=== PATIENT | male | born 1950 | race Two or more races ===

== ENCOUNTER 2018-08-07 12:40 | Emergency (ER) | payer MEDICARE, OTHER ==
[~2018-08-07] VITALS: Ht 165.1 cm; Wt 77.1 kg
[2018-08-07 12:40] VITALS: BP 164/74
[2018-08-07] MEDS ORDERED: ORPH100T PO (13:20)
[2018-08-07] MEDS ORDERED: HYDR-3164 PO (13:20)
[2018-08-07] MEDS ORDERED: IBUP-1007 PO (13:20)
--- NOTE | 2018-08-07 13:20 | PHYS DOC ---
Past Medical History Past Medical History: No Pertinent History (SARA,MICAELA Aguirre FOOT SPECIALIST) Past Surgical History: No Surgical History [facility] Alcohol Use: Occasionally Drug Use: None ([facility]) Adult General Chief Complaint Chief Complaint: Neck Pain [facility] HPI Patient is a 67 year old male who presents with woke 3 days ago and he had pain in his right and left side of his neck and goes into both shoulders. Patient states he took the oxycodone last night and has been trying to use heat with the pain still there. Patient rates his pain a 7 out of 10. He states his feels tight and spasming pain. ([facility],MICAELA Aguirre FOOT SPECIALIST) Review of Systems Review of Systems Constitutional: Denies fever or chills [] Eyes: Denies change in visual acuity, redness, or eye pain [] HENT: Denies nasal congestion or sore throat [] Respiratory: Denies cough or shortness of breath [] Cardiovascular: No additional information not addressed in HPI [] GI: Denies abdominal pain, nausea, vomiting, bloody stools or diarrhea [] : Denies dysuria or hematuria [] Musculoskeletal: upper back pain and neck tightness or joint pain [] Integument: Denies rash or skin lesions [] Neurologic: Denies headache, focal weakness or sensory changes [] All other systems were reviewed and found to be within normal limits, except as documented in this note. (MICAELA RUIZ FOOT SPECIALIST) Allergies Allergies Allergies Coded Allergies Type Severity Reaction Last Updated Verified No Known Drug Allergies 08/07/18 No (ISHMAEL GU MD) Physical Exam Physical Exam Constitutional: Well developed, well nourished, no acute distress, non-toxic appearance. [] HENT: Normocephalic, atraumatic, bilateral external ears normal, oropharynx moist, no oral exudates, nose normal. [] Eyes: PERRLA, EOMI, conjunctiva normal, no discharge. [] Neck: Normal range of motion, no tenderness, supple, no stridor. [] Cardiovascular:Heart rate regular rhythm, no murmur [] Lungs & Thorax: Bilateral breath sounds clear to auscultation [] Abdomen: Bowel sounds normal, soft, no tenderness, no masses, no pulsatile masses. [] Skin: Warm, dry, no erythema, no rash. [] Back: No tenderness, no CVA tenderness. [] Extremities: bilateral sides of neck and upper back tenderness with palpation pressure, no cyanosis, no clubbing, ROM intact, no edema. [] Neurologic: Alert and oriented X 3, normal motor function, normal sensory function, no focal deficits noted. [] Psychologic: Affect normal, judgement normal, mood normal. [] (MICAELA RUIZ APRN) Current Patient Data Vital Signs Vital Signs Date Time Temp Pulse Resp B/P (MAP) Pulse Ox O2 Delivery O2 Flow Rate FiO2 08/07/18 12:40 98.6 68 14 164/74 (104) 98 Room Air 98.6 (ISHMAEL GU MD) EKG EKG [] (MICAELA RUIZ APRN) Radiology/Procedures Radiology/Procedures [] (MICAELA RUIZ APRN) Course & Med Decision Making Course & Med Decision Making Patient is a 67 year old male who presents with woke 3 days ago and he had pain in his right and left side of his neck and goes into both shoulders. Patient states he took the oxycodone last night and has been trying to use heat with the pain still there. Patient rates his pain a 7 out of 10. He states his feels tight and spasming pain. Alert and oriented. Ambulatory with steady gait. Drove himself to the hospital. Skin pink warm and dry. Mucous membranes moist. PERRLA. Denies numbness or tingling, chest pain, shortness of air, headache, visual changes, fever, nausea, vomiting. Lungs are clear to auscultation all lobes. Vital signs are within normal limits. Neurologically intact Patient likely has muscle strain to his upper back and neck. He does not have intact range of motion to his neck but can turn his head equal the same distance in the right and left direction. There is no swelling or lymph nodes or bumps or felt in the neck or upper back. There is slight tenderness with palpation to bilateral shoulders and bilateral sides of the neck. Patient will be given a muscle relaxer and pain medication and he needs to follow-up with his primary care doctor this coming week. (MICAELA RUIZ APRN) Course & Med Decision Making Staff Physician Addendum: I was working in the ER during the course of this patient's visit. I was available for consultation as needed, but I was not directly involved in the care of this patient. (ISHMAEL GU MD) Dragon Disclaimer Dragon Disclaimer This electronic medical record was generated, in whole or in part, using a voice recognition dictation system. (MICAELA RUIZ APRN) Departure Departure Impression: Primary Impression: Neck muscle strain Additional Impression: Muscle strain of upper back Disposition: HOME, SELF-CARE Condition: STABLE Patient Instructions: Muscle Strain Additional Instructions: Take medications as prescribed. Try using heating pad. Follow-up with your primary care doctor if not getting better. Scripts Ibuprofen (IBUPROFEN) 600 Mg Tablet 600 MG PO PRN Q6HRS PRN for INFLAMMATION, #15 TAB Prov: MICAELA RUIZ APRN 08/07/18 Hydrocodone/Apap 5-325 (NORCO 5-325 TABLET) 1 Each Tablet 1 TAB PO PRN Q6HRS PRN for PAIN, #8 TAB 0 Refills Prov: MICAELA RUIZ APRN 08/07/18 Orphenadrine Citrate (ORPHENADRINE CITRATE) 100 Mg Tablet.er 1 TAB PO BID, #20 TAB Prov: MICAELA RUIZ APRN 08/07/18 Problem Qualifiers Primary Impression: Neck muscle strain Encounter type: initial encounter Qualified Codes: S16.1XXA - Strain of muscle, fascia and tendon at neck level, initial encounter MICAELA RUIZ APRN Aug 07, 2018 13:20 ISHMAEL GU MD Aug 08, 2018 21:26
== END 2018-08-07 13:45 | disposition home or self-care (01) ==
LOC: ER 12:40
DX: S16.1XXA Strain of muscle, fascia and tendon at neck level, initial encounter (principal); S29.012A Strain of muscle and tendon of back wall of thorax, initial encounter; X50.9XXA Other and unspecified overexertion or strenuous movements or postures, initial encounter; Y93.89 Activity, other specified; Y92.89 Other specified places as the place of occurrence of the external cause; Y99.8 Other external cause status
CPT/HCPCS: 99283

== ENCOUNTER 2019-06-17 14:02 | Emergency (ER) | payer MEDICARE, OTHER ==
[~2019-06-17 14:02] MED LIST: HYDR-3164 PO; IBUP-1007 PO; ORPH100T PO
== END 2019-06-17 16:14 | disposition left against medical advice (07) ==
LOC: ER 14:29
DX: R10.9 Unspecified abdominal pain (principal); Z53.21 Procedure and treatment not carried out due to patient leaving prior to being seen by health care provider

== ENCOUNTER 2019-07-03 12:08 | Emergency (ER) | payer MEDICARE ==
[2019-07-03 12:32] VITALS: BP 171/80
[2019-07-03] MEDS ORDERED: KETOROLAC 30 MG/ML VIAL. IM STA (12:58)
[2019-07-03] MEDS ORDERED: KETOROLAC 30 MG/ML VIAL. ONE (13:01)
[2019-07-03] MEDS ORDERED: IBUP-1027 PO (13:03)
[2019-07-03] MEDS ORDERED: ORPH100T PO (13:03)
--- NOTE | 2019-07-03 13:04 | PHYS DOC ---
Past Medical History Past Medical History: No Pertinent History (JACOBO JULIAN APRN) Past Surgical History: No Surgical History (JACOBO JULIAN APRN) Alcohol Use: Occasionally Drug Use: None (JACOBO JULIAN APRN) Adult General Chief Complaint Chief Complaint: Neck Pain [facility] Patient is a 68 year old male who presents with bilateral neck pain after he was using a snow shovel the last 3-4 days. Denies any other symptoms. Has not been taking medication at home. Complete ROS were reviewed and found to be within normal limits, except as doc umented in the HPI (JACOBO JULIAN APRN) Current Medications Current Medications Current Medications Medications (Trade) Dose Ordered Sig/John Start Time Stop Time Status Last Admin Dose Admin Ketorolac Tromethamine (Toradol 30mg Vial) 30 mg STK-MED ONCE 07/03/19 13:01 07/03/19 13:01 DC (ISHMAEL GU MD) Allergies Allergies Allergies Coded Allergies Type Severity Reaction Last Updated Verified No Known Drug Allergies 08/07/18 No (ISHMAEL GU MD) Physical Exam Physical Exam Constitutional: Well developed, well nourished, no acute distress, non-toxic appearance. [] HENT: Normocephalic, atraumatic, bilateral external ears normal, oropharynx moist, no oral exudates, nose normal. [] Eyes: PERRLA, EOMI, conjunctiva normal, no discharge. [] Neck: Normal range of motion, no spinal tenderness, supple, no stridor. Patient has tenderness to trapezoids muscle. Neurologic: Alert and oriented X 3, normal motor function, normal sensory function, no focal deficits noted. [] Psychologic: Affect normal, judgement normal, mood normal. [] (JACOBO JULIAN APRN) Current Patient Data Vital Signs Vital Signs Date Time Temp Pulse Resp B/P (MAP) Pulse Ox O2 Delivery O2 Flow Rate FiO2 07/03/19 12:32 98.1 73 14 171/80 (110) 95 Room Air 98.1 (ISHMAEL GU MD) EKG EKG [] (JACOBO JULIAN APRN) Radiology/Procedures Radiology/Procedures [] (JACOBO JULIAN APRN) Course & Med Decision Making Course & Med Decision Making Pertinent Labs and Imaging studies reviewed. (See chart for details) Appears to have musculoskeletal strain. Will give Toradol and then send home on Ibuprofen and Norflex. (JACOBO JULIAN APRN) Course & Med Decision Making Staff Physician Addendum: I was working in the ER during the course of this patient's visit. I was available for consultation as needed, but I was not directly involved in the care of this patient. (ISHMAEL GU MD) Dragon Disclaimer Dragon Disclaimer This electronic medical record was generated, in whole or in part, using a voice recognition dictation system. (JACOBO JULIAN APRN) Departure Departure Impression: Primary Impression: Muscle strain of upper back Disposition: HOME, SELF-CARE Condition: STABLE Referrals: NO PCP (PCP) Patient Instructions: Musculoskeletal Pain Additional Instructions: Thank you for visiting [facility]. We appreciate you trusting us with your care. If any additional problems come up don't hesitate to return to visit us. Please follow up with your primary care provider so they can plan additional care if needed and know about the problem that you had. If symptoms worsen come back to the Emergency Department. Any concerning symptoms that start such as chest pain, shortness of air, weakness or numbness on one side of the body, running high fevers or any other concerning symptoms return to the ER. Please fill your medications at any pharmacy and follow the prescription instructions. Scripts Orphenadrine Citrate (ORPHENADRINE CITRATE) 100 Mg Tablet.er 100 MG PO BID PRN for MUSCLE PAIN for 5 Days, #10 TAB.SR Please be aware this medication will make you drowsy. Prov: JACOBO JULIAN APRN 07/03/19 Ibuprofen (IBUPROFEN) 400 Mg Tablet 400 MG PO PRN Q6HRS PRN for INFLAMMATION for 5 Days, #20 TAB Prov: JACOBO JULIAN APRN 07/03/19 JACOBO JULIAN APRN Jul 03, 2019 13:03 ISHMAEL GU MD Jul 03, 2019 14:30
== END 2019-07-03 13:08 | disposition home or self-care (01) ==
LOC: ER 12:08
DX: S29.012A Strain of muscle and tendon of back wall of thorax, initial encounter (principal); X58.XXXA Exposure to other specified factors, initial encounter; Y93.89 Activity, other specified; Y92.89 Other specified places as the place of occurrence of the external cause; Y99.8 Other external cause status
CPT/HCPCS: 96372; 99283; J1885

== ENCOUNTER 2019-07-23 13:24 | Emergency (ER) | payer MEDICARE ==
[~2019-07-23] VITALS: Ht 165.1 cm; Wt 66.5 kg
[~2019-07-23 13:24] MED LIST changes: +IBUP-1027 PO
[2019-07-23] MEDS ORDERED: LIDO:MAALOX 1:1 20 ML SINGLE DOSE. SWSW STA (13:50)
--- NOTE | 2019-07-23 13:53 | PHYS DOC ---
Past Medical History Past Medical History: No Pertinent History Past Surgical History: No Surgical History Smoking Status: Never Smoker Alcohol Use: Occasionally Drug Use: None Adult General Chief Complaint Chief Complaint: ABDOMINAL PAIN HPI HPI Patient is a 68 year old male who presents with abdominal pain has been ongoing for a month intermittently. Location of the pain is in epigastric region of the abdomen. The patient rates his pain 6 out of 10 in severity and sharp. The patient denies any medical history. The patient denies any associated symptoms such as nausea, vomiting, diarrhea. The patient denies any back pain, arm pain, chest pain. Denies anything making the pain better or worse. Complete ROS were reviewed and found to be within normal limits, except as documented in the HPI Current Medications Current Medications Current Medications Medications (Trade) Dose Ordered Sig/John Start Time Stop Time Status Last Admin Dose Admin Fentanyl Citrate (Fentanyl 2ml Vial) 50 mcg 1X ONCE 07/23/19 15:30 07/23/19 15:31 07/23/19 15:27 50 MCG Info (CONTRAST GIVEN -- Rx MONITORING) 1 each PRN DAILY PRN 07/23/19 14:45 07/25/19 14:44 Iohexol (Omnipaque 300 Mg/ml) 75 ml 1X ONCE 07/23/19 14:45 07/23/19 14:46 DC 07/23/19 15:06 75 ML Multi-Ingredient Mouthwash/Gargle (Gi Cocktail) 20 ml 1X STAT 07/23/19 13:50 07/23/19 13:56 DC 07/23/19 14:23 20 ML Sodium Chloride 1,000 ml @ 1,000 mls/hr 1X ONCE 07/23/19 15:30 07/23/19 16:29 07/23/19 15:26 1,000 MLS/HR Allergies Allergies Allergies Coded Allergies Type Severity Reaction Last Updated Verified No Known Drug Allergies 08/07/18 No Physical Exam Physical Exam Constitutional: Well developed, well nourished, no acute distress, non-toxic appearance. [] HENT: Normocephalic, atraumatic, bilateral external ears normal, oropharynx moist, no oral exudates, nose normal. [] Eyes: PERRLA, EOMI, conjunctiva normal, no discharge. [] Neck: Normal range of motion, no tenderness, supple, no stridor. [] Cardiovascular:Heart rate regular rhythm, no murmur [] Lungs & Thorax: Bilateral breath sounds clear to auscultation [] Abdomen: Bowel sounds normal, soft, epigastric tenderness, no masses, no pulsatile masses. [] Skin: Warm, dry, no erythema, no rash. [] Neurologic: Alert and oriented X 3, normal motor function, normal sensory function, no focal deficits noted. [] Psychologic: Affect normal, judgement normal, mood normal. [] Current Patient Data Vital Signs Vital Signs Date Time Temp Pulse Resp B/P (MAP) Pulse Ox O2 Delivery O2 Flow Rate FiO2 07/23/19 15:29 70 17 184/88 (120) 99 Room Air 07/23/19 14:13 97.6 97.6 Lab Values Laboratory Tests Test 07/23/19 13:34 07/23/19 13:40 Urine Collection Type Unknown Urine Color Jennifer Urine Clarity Clear Urine pH 5.5 Urine Specific [place] >=1.030 Urine Protein 30 mg/dL (NEG-TRACE) Urine Glucose (UA) >=1000 mg/dL (NEG) Urine Ketones (Stick) Trace mg/dL (NEG) Urine Blood Negative (NEG) Urine Nitrite Negative (NEG) Urine Bilirubin Small (NEG) Urine Urobilinogen Dipstick 0.2 mg/dL (0.2 mg/dL) Urine Leukocyte Esterase Negative (NEG) Urine RBC 0 /HPF (0-2) Urine WBC 0 /HPF (0-4) Urine Bacteria 0 /HPF (0-FEW) Urine Mucus Mod /LPF White Blood Count 7.6 x10^3/uL (4.0-11.0) Red Blood Count 5.14 x10^6/uL (4.30-5.70) Hemoglobin 15.6 g/dL (13.0-17.5) Hematocrit 45.4 % (39.0-53.0) Mean Corpuscular Volume 88 fL (79-100) Mean Corpuscular Hemoglobin 30 pg (25-35) Mean Corpuscular Hemoglobin Concent 34 g/dL (31-37) Red Cell Distribution Width 14.1 % (11.5-14.5) Platelet Count 216 x10^3/uL (140-400) Neutrophils (%) (Auto) 58 % (31-73) Lymphocytes (%) (Auto) 29 % (24-48) Monocytes (%) (Auto) 8 % (0-9) Eosinophils (%) (Auto) 4 % (0-3) H Basophils (%) (Auto) 1 % (0-3) Neutrophils # (Auto) 4.4 x10^3/uL (1.8-7.7) Lymphocytes # (Auto) 2.2 x10^3/uL (1.0-4.8) Monocytes # (Auto) 0.6 x10^3/uL (0.0-1.1) Eosinophils # (Auto) 0.3 x10^3/uL (0.0-0.7) Basophils # (Auto) 0.1 x10^3/uL (0.0-0.2) Sodium Level 138 mmol/L (136-145) Potassium Level 4.1 mmol/L (3.5-5.1) Chloride Level 101 mmol/L (98-107) Carbon Dioxide Level 31 mmol/L (21-32) Anion Gap 6 (6-14) Blood Urea Nitrogen 12 mg/dL (8-26) Creatinine 0.8 mg/dL (0.7-1.3) Estimated GFR (Cockcroft-Gault) 96.7 BUN/Creatinine Ratio 15 (6-20) Glucose Level 208 mg/dL (70-99) H Calcium Level 8.9 mg/dL (8.5-10.1) Total Bilirubin 0.6 mg/dL (0.2-1.0) Aspartate Amino Transferase (AST) 16 U/L (15-37) Alanine Aminotransferase (ALT) 19 U/L (16-63) Alkaline Phosphatase 118 U/L (46-116) H Troponin I Quantitative < 0.017 ng/mL (0.000-0.055) Total Protein 7.5 g/dL (6.4-8.2) Albumin 3.7 g/dL (3.4-5.0) Albumin/Globulin Ratio 1.0 (1.0-1.7) Lipase 134 U/L (73-393) Laboratory Tests 07/23/19 13:40 Laboratory Tests 07/23/19 13:40 EKG EKG [] Radiology/Procedures Radiology/Procedures [facility] [address] [place] [address] IMAGING REPORT Signed PATIENT: KELLY GIORDANO ACCOUNT: [id number] : 1950 LOCATION: ER AGE: 68 SEX: M EXAM STATUS: REG ER ORD. PHYSICIAN: JACOBO JULIAN APRN REASON: epigastric pain PROCEDURE: CT ABD PELV W/ IV CONTRST ONLY Study: CT abdomen/pelvis with intravenous contrast Indication: Epigastric pain. Comparison: None. Technique: Helical CT imaging performed of the abdomen and pelvis after the intravenous administration of 75 cc Omnipaque 300 contrast. Sagittal and coronal reformats were obtained. One or more of the following individualized dose reduction techniques were utilized for this examination: 1. Automated exposure control 2. Adjustment of the mA and/or kV according to patient size 3. Use of iterative reconstruction technique. Findings: Chest: Unremarkable. Liver: Unremarkable. Gallbladder/Biliary Tree: Unremarkable. Pancreas: Foci of pancreatic mineralization seen at the head/body junction, image 28 series 2 and at the mid body on image 22 series 2. No peripancreatic inflammatory changes or discrete mass. Spleen: Normal size. Adrenal Glands: Normal morphology. Kidneys/Ureters/Bladder: No suspicious cyst or mass involving either kidney. No hydroureteronephrosis. Partially collapsed urinary bladder with mild circumferential wall thickening. The urachus is somewhat prominent proximally and may be partially patent, image 30 series 5. The urachus becomes threadlike approaching the umbilicus. Reproductive Organs: The prostate is prominent in size at approximately 5.5 cm transverse. Colon: Unremarkable. Appendix: Unremarkable. Small Bowel: Nonobstructed. Stomach: Mucosal thickening in the region of the gastric fundus posterior wall and to a lesser degree along the greater curvature of the gastric body proximally, image 14 series 2. The stomach is not fully distended. Vasculature: Scattered calcified and noncalcified atheromatous plaque. No aneurysmal dilatation. There appears be mild luminal narrowing mainly on account of soft plaque involving the left common iliac artery, image 51 series 2. Lymph Nodes: Unremarkable. Peritoneum and Body Wall: No free air or free fluid. Bones: Scattered degenerative changes no acute or aggressive osseous abnormality. Miscellaneous: None. Impression: 1. Mild thickening of the posterior wall of the gastric fundus and proximal gastric body along the greater curvature which is a nonspecific finding given gastric underdistention. In the appropriate clinical setting however gastritis could account for this appearance. No surrounding inflammatory changes, discrete ulceration or regional lymphadenopathy. 2. Small foci of mineralization within the pancreas which could represent a manifestation of prior inflammation. No features of acute appendicitis. 3. Enlargement of the prostate. Mild bladder wall thickening circumferentially. Recommend correlation for symptoms of chronic bladder outlet obstruction. 4. Multifocal atheromatous plaque with greatest involvement of the left common iliac artery where there appears to be mild luminal stenosis mainly due to soft plaque. Electronically signed by: YURI HOOD MD (07/23/2019 3:26 PM) [id number] DICTATED and SIGNED BY: YURI HOOD MD DATE: 07/23/19 1526 [][facility] [address] [place] [address] IMAGING REPORT Signed PATIENT: KELLY GIORDANO ACCOUNT: [id number] : 1950 LOCATION: ER AGE: 68 SEX: M EXAM STATUS: PRE ER ORD. PHYSICIAN: JACOBO JULIAN APRN REASON: epigastric pain PROCEDURE: CHEST PA & LATERAL EXAM: CHEST PA LATERAL INDICATION: Epigastric pain. TECHNIQUE: PA and lateral views COMPARISON: None FINDINGS: The heart size is normal. The great vessels appear unremarkable. There is no hilar or mediastinal mass. The lungs are clear. There is no pleural effusion or pneumothorax. There are no significant osseous abnormalities. IMPRESSION: No active cardiopulmonary disease. Electronically signed by: Odalys Tirado MD (07/23/2019 2:05 PM) [facility] DICTATED and SIGNED BY: ODALYS TIRADO MD DATE: 07/23/19 1405 Course & Med Decision Making Course & Med Decision Making Pertinent Labs and Imaging studies reviewed. (See chart for details) Will get labs, CT, UA, and give supportive care. Labs are unremarkable. GI cockail helped pain some. CT shows: Impression: 1. Mild thickening of the posterior wall of the gastric fundus and proximal gastric body along the greater curvature which is a nonspecific finding given gastric underdistention. In the appropriate clinical setting however gastritis could account for this appearance. No surrounding inflammatory changes, discrete ulceration or regional lymphadenopathy. 2. Small foci of mineralization within the pancreas which could represent a manifestation of prior inflammation. No features of acute appendicitis. 3. Enlargement of the prostate. Mild bladder wall thickening circumferentially. Recommend correlation for symptoms of chronic bladder outlet obstruction. 4. Multifocal atheromatous plaque with greatest involvement of the left common iliac artery where there appears to be mild luminal stenosis mainly due to soft plaque. Electronically signed by: YURI HOOD MD (07/23/2019 3:26 PM) [id number] Patient appears to have gastritis. Will place on Protonix and have follow up with pcp/GI. Archieon Disclaimer Dragon Disclaimer This electronic medical record was generated, in whole or in part, using a voice recognition dictation system. Departure Departure Impression: Primary Impression: Gastritis Disposition: HOME, SELF-CARE Condition: STABLE Referrals: NO PCP (PCP) ARIEL AMBRIZ MD Patient Instructions: Gastritis, Adult Additional Instructions: Thank you for visiting [facility]. We appreciate you trusting us with your care. If any additional problems come up don't hesitate to return to visit us. Please follow up with your primary care provider so they can plan additional care if needed and know about the problem that you had. If symptoms worsen come back to the Emergency Department. Any concerning symptoms that start such as chest pain, shortness of air, weakness or numbness on one side of the body, running high fevers or any other concerning symptoms return to the ER. Scripts Pantoprazole Sodium (PROTONIX) 20 Mg Tablet. 40 MG PO DAILY for 30 Days, #60 TAB Prov: JACOBO UJLIAN APRN 07/23/19 Problem Qualifiers Primary Impression: Gastritis Gastritis type: unspecified gastritis Chronicity: acute Gastritis bleeding: without bleeding Qualified Codes: K29.00 - Acute gastritis without bleeding JACOBO JULIAN APRN Jul 23, 2019 13:53
[2019-07-23 14:00] LABS: BILIRUBIN,URINE SMALL (NEG); CLARITY,URINE CLEAR; COLOR,URINE AMBER; NITRITE,URINE NEGATIVE (NEG); PH,URINE 5.5; PROTEIN,URINE 30 mg/dL (NEG-TRACE); UROBILINOGEN,URINE 0.2 mg/dL (0.2 mg/dL)
--- NOTE | 2019-07-23 14:08 | RAD ---
EXAM: CHEST PA LATERAL INDICATION: Epigastric pain. TECHNIQUE: PA and lateral views COMPARISON: None FINDINGS: The heart size is normal. The great vessels appear unremarkable. There is no hilar or mediastinal mass. The lungs are clear. There is no pleural effusion or pneumothorax. There are no significant osseous abnormalities. IMPRESSION: No active cardiopulmonary disease. Electronically signed by: Kelly Tirado MD (07/23/2019 2:05 PM) [facility]
[2019-07-23 14:09] LABS: BACTERIA,URINE 0 /HPF (0-FEW); RBC,URINE 0 /HPF (0-2); WBC,URINE 0 /HPF (0-4)
[2019-07-23 14:26] LABS: BASO # 0.1 x10^3/uL (0.0-0.2); BASO % 1 % (0-3); EOS # 0.3 x10^3/uL (0.0-0.7); EOS % 4 % (0-3); HEMATOCRIT 45.4 % (39.0-53.0); HEMOGLOBIN 15.6 g/dL (13.0-17.5); LYMPH # 2.2 x10^3/uL (1.0-4.8); LYMPH % 29 % (24-48); MEAN CORPUSCULAR HEMOGLOBIN 30 pg (25-35); MEAN CORPUSCULAR HGB CONC 34 g/dL (31-37); MEAN CORPUSCULAR VOLUME 88 fL (79-100); MONO # 0.6 x10^3/uL (0.0-1.1); MONO % 8 % (0-9); NEUT # 4.4 x10^3/uL (1.8-7.7); NEUT % 58 % (31-73); PLATELET COUNT 216 x10^3/uL (140-400); RED BLOOD COUNT 5.14 x10^6/uL (4.30-5.70); RED CELL DISTRIBUTION WIDTH 14.1 % (11.5-14.5); WHITE BLOOD COUNT 7.6 x10^3/uL (4.0-11.0)
[2019-07-23 14:43] LABS: ALBUMIN 3.7 g/dL (3.4-5.0); CALCIUM 8.9 mg/dL (8.5-10.1); CREATININE 0.8 mg/dL (0.7-1.3); GFR 96.7; POTASSIUM 4.1 mmol/L (3.5-5.1); TOTAL BILIRUBIN 0.6 mg/dL (0.2-1.0); TOTAL PROTEIN 7.5 g/dL (6.4-8.2)
[2019-07-23] MEDS ORDERED: IOHEXOL 300 MG/ML 100ML VIAL. IV ONE (14:45)
[2019-07-23] MEDS ORDERED: CONTRAST GIVEN. MC PRN (14:45)
--- NOTE | 2019-07-23 15:29 | RAD ---
Study: CT abdomen/pelvis with intravenous contrast Indication: Epigastric pain. Comparison: None. Technique: Helical CT imaging performed of the abdomen and pelvis after the intravenous administration of 75 cc Omnipaque 300 contrast. Sagittal and coronal reformats were obtained. One or more of the following individualized dose reduction techniques were utilized for this examination: 1. Automated exposure control 2. Adjustment of the mA and/or kV according to patient size 3. Use of iterative reconstruction technique. Findings: Chest: Unremarkable. Liver: Unremarkable. Gallbladder/Biliary Tree: Unremarkable. Pancreas: Foci of pancreatic mineralization seen at the head/body junction, image 28 series 2 and at the mid body on image 22 series 2. No peripancreatic inflammatory changes or discrete mass. Spleen: Normal size. Adrenal Glands: Normal morphology. Kidneys/Ureters/Bladder: No suspicious cyst or mass involving either kidney. No hydroureteronephrosis. Partially collapsed urinary bladder with mild circumferential wall thickening. The urachus is somewhat prominent proximally and may be partially patent, image 30 series 5. The urachus becomes threadlike approaching the umbilicus. Reproductive Organs: The prostate is prominent in size at approximately 5.5 cm transverse. Colon: Unremarkable. Appendix: Unremarkable. Small Bowel: Nonobstructed. Stomach: Mucosal thickening in the region of the gastric fundus posterior wall and to a lesser degree along the greater curvature of the gastric body proximally, image 14 series 2. The stomach is not fully distended. Vasculature: Scattered calcified and noncalcified atheromatous plaque. No aneurysmal dilatation. There appears be mild luminal narrowing mainly on account of soft plaque involving the left common iliac artery, image 51 series 2. Lymph Nodes: Unremarkable. Peritoneum and Body Wall: No free air or free fluid. Bones: Scattered degenerative changes no acute or aggressive osseous abnormality. Miscellaneous: None. Impression: 1. Mild thickening of the posterior wall of the gastric fundus and proximal gastric body along the greater curvature which is a nonspecific finding given gastric underdistention. In the appropriate clinical setting however gastritis could account for this appearance. No surrounding inflammatory changes, discrete ulceration or regional lymphadenopathy. 2. Small foci of mineralization within the pancreas which could represent a manifestation of prior inflammation. No features of acute appendicitis. 3. Enlargement of the prostate. Mild bladder wall thickening circumferentially. Recommend correlation for symptoms of chronic bladder outlet obstruction. 4. Multifocal atheromatous plaque with greatest involvement of the left common iliac artery where there appears to be mild luminal stenosis mainly due to soft plaque. Electronically signed by: YURI HOOD MD (07/23/2019 3:26 PM) [id number]
[2019-07-23] MEDS ORDERED: IV NORMAL SALINE 1000ML BAG 1,000 ML IV ONE (15:30)
[2019-07-23] MEDS ORDERED: fentaNYL PF VIAL 100 MCG/2 ML VIAL IV ONE (15:30)
[2019-07-23] MEDS ORDERED: PANT20TA2 PO (15:35)
[2019-07-23 15:56] VITALS: BP 151/82
--- NOTE | 2019-07-25 07:08 | EKG ---
[facility] [address] [place] [address] Test Date: 2019-07-23 Test Time: 14:34:31 Pat Name: KELLY GIORDANO Department: Room: Gender: M Real Time Analyst: : 1950 Requested By: JACOBO JULIAN Order Number: [id number] Reading MD: Measurements Intervals [place] Rate: 77 P: -59 OK: 136 QRS: -48 QRSD: 90 T: 30 QT: 354 QTc: 402 Interpretive Statements SINUS RHYTHM ABNORMAL LEFT AXIS DEVIATION LEFT ANTERIOR FASCICULAR BLOCK QRS(T) CONTOUR ABNORMALITY CONSIDER ANTEROSEPTAL MYOCARDIAL DAMAGE ABNORMAL ECG RI6.01 No previous ECG available for comparison
== END 2019-07-23 16:16 | disposition home or self-care (01) ==
LOC: ER 13:24
DX: K29.00 Acute gastritis without bleeding (principal)
CPT/HCPCS: 36415; 71046; 74177; 80053; 81001; 83690; 84484; 85025; 93005; 96361; 96374; 99285; J3010; J7030; Q9967